=== PATIENT | female | born 1995 | race Caucasian/White ===

== ENCOUNTER 2018-08-11 10:06 | Day surgery (SDC) | payer OTHER ==
[2018-08-04 11:42] VITALS: BMI 32.0
[2018-08-11] MEDS ORDERED: MIDAZOLAM HCL 2 MG/2 ML SINGLE DOSE VIAL ONE (13:26)
[2018-08-11] MEDS ORDERED: PROPOFOL 20 ML ONE ×3 (13:26)
[2018-08-11] MEDS ORDERED: fentaNYL CITRATE 250 MCG/5 ML VIAL ONE ×2 (13:26→14:55)
[2018-08-11] MEDS ORDERED: ROCURONIUM BROMIDE 50 MG/5 ML VIAL ONE ×2 (13:26→14:54)
[2018-08-11] MEDS ORDERED: ceFAZolin SODIUM 1 GM VIAL ONE (13:51)
[2018-08-11] MEDS ORDERED: ONDANSETRON 4 MG/2 ML VIAL ONE (13:51)
[2018-08-11] MEDS ORDERED: LIDOCAINE HCL 2% JELLY (5 ML/TUBE) ONE (13:51)
[2018-08-11] MEDS ORDERED: KETOROLAC TROMETHAMINE 30 MG/1 ML VIAL ONE (13:51)
[2018-08-11] MEDS ORDERED: DEXAMETHASONE SOD PHOSPHATE 4 MG/1 ML VIAL ONE (13:51)
[2018-08-11] MEDS ORDERED: NEOSTIGMINE METHYLSULFATE 0.5 MG/ML - 10 ML MDV ONE (16:17)
--- NOTE | 2018-08-11 16:57 | SURG ---
Surgery Neonatal Pediatric Nurse Note Neonatal Pediatric Nurse: Monie Swartz PA-C Date of Service: 08/11/18 Diagnosis: bilateral symptomatic macromastia Procedure: Bilateral breast reduction I was present for the entirety of the operative procedure. For further detail, please refer to operative report. Visit type - Case Type Case Type: Scheduled - Emergency Emergency Visit: No - New patient This patient is new to me today: Yes Date on this admission: 08/11/18
[2018-08-11] MEDS ORDERED: oxyCODONE HCL 5 MG TABLET PO PRN ×4 (18:38→18:58)
[2018-08-11] MEDS ORDERED: PROMETHAZINE HCL 25 MG/1 ML VIAL IVPUSH PRN (18:38)
[2018-08-11] MEDS ORDERED: ONDANSETRON 4 MG/2 ML VIAL IVPUSH PRN (18:38)
[2018-08-11] MEDS ORDERED: ONDANSETRON 4 MG/2 ML VIAL IVPB PRN (18:58)
[2018-08-11] MEDS ORDERED: LACTATED RINGERS SOLUTION 1,000 ML IV SCH (19:00)
--- NOTE | 2018-08-11 19:01 | OP ---
Operative Note - Note: Operative Date: 08/11/18 Pre-Operative Diagnosis: bilateral symptomatic macromastia Operation: bilateral reduction mammoplasty Post-Operative Diagnosis: Same as Pre-op Surgeon: Prabhu Lopez Anesthesia: General Operative Report Dictated: Yes
[2018-08-11] MEDS ORDERED: oxyCODONE HCL 5 MG TABLET ONE (19:42)
[2018-08-11 20:29] VITALS: BP 108/70; PULSE 100; TEMP 98.8
--- NOTE | 2018-08-11 21:30 | OP ---
DATE OF OPERATION: 08/11/2018 TITLE OF PROCEDURE: Bilateral reduction mammoplasty. PREOPERATIVE DIAGNOSIS: Bilateral symptomatic macromastia. POSTOPERATIVE DIAGNOSIS: Bilateral symptomatic macromastia. ATTENDING SURGEON: Prabhu Lopez MD SPINDLE MAKER: JARED Simmons ANESTHESIA: General endotracheal. The patient is seen in the holding area and marked in a standing position an inverted-T, Velázquez-type pattern. Inferior pedicle mammoplasty is planned and marked. Patient is awake, aware of all incisions and resulting scars. Risks, benefits, and alternatives are thoroughly discussed, understand and agreed to proceed. Patient is then brought to the operating room, placed in supine position. It should be noted that nipples are sighted at 21 cm from the sternal notch bilaterally. Patient is placed in supine position. All pressure points are carefully padded in preparation for surgery. A Aguiar catheter is placed and removed at the end of the procedure. Sequential compression stockings and DEVORA hose were applied. A gram of Ancef was given preoperatively. At this point, a timeout is called. Patient, procedure, sites, and sides are verified. The patient had been prepped and draped in standard surgical fashion. The procedure commenced as follows. The markings are reassured. The nipples are traced with a 42-mm cookie cutter. A 10-cm-width inferior pedicle is patterned, centered over the midline of the breasts. The breasts are then placed under tourniquet for de-epithelialization. The pedicle is de-epithelialized with the exception of the nipple-areolar complex. At this point, the tourniquets are removed, and attention is first directed toward the left breast. Skin flaps are then elevated superiorly, medially, and laterally to the level of the chest wall. The pedicle is developed using PEAK Harmonic scalpel to the level of the chest wall to achieve the patient's desired size of C cup breasts. Hemostasis then meticulously achieved. The skin is tailor tacked with louise. With the patient in a seated, upright position, a C cup breast appears to be yielded. The resection weight on the left breast is 609 g. The attention is then directed toward the right breast where a mirror-image procedure is performed. This weight of the resected tissue on this right side is 707 g, just slightly larger breast to begin with. With the skin tailor tacked, the patient is brought to a seated, upright position. Symmetry of size and shape and position are all excellent. The skin is modified for closure. The closure is then performed over a size 10 flat MILA drain, brought out through the lateral extent of the incision, secured with a 2-0 silk drain suture. The lateral-most portions of the incisions are closed with a series of interrupted, superficial fascial system Rolly layer, 2-0 Vicryl suture. The inverted T-point is closed with a half-buried mattress 2-0 nylon suture. The vertical and horizontal limbs are then closed with a series of interrupted, buried, deep dermal 3-0 Monocryl suture, followed by a running subcuticular 3-0 Monocryl suture. The nipple-areola is inset with a series of interrupted, buried, deep dermal 3-0 Monocryl suture, followed by a running subcuticular 4-0 Monocryl suture. Closure is performed similarly on both sides. Nipples are pink and viable at the end of the procedure. Drains were placed to bulb suction. The patient is dressed with Xeroform and 4-x-4 gauze. A surgical bra is applied. The patient is transferred to Recovery without complication. Ariela [id number]
--- NOTE | 2018-08-13 13:10 | PATH ---
Surgical Pathology Report Patient Name: ANJEL LINDA Med. Rec. #: [id number] /Age/Gender: 1995 (Age: 23) / F Account: [id number] Location: [facility] Taken: 08/11/2018 Received: 08/11/2018 Reported: 08/13/2018 Physicians: Prabhu Lopez Specimen(s) Received A: LEFT BREAST SKIN AND TISSUE B: RIGHT BREAST SKIN AND TISSUE Clinical History Bilateral macromastia Final Diagnosis A. BREAST SKIN AND TISSUE, LEFT, EXCISION: BENIGN BREAST PARENCHYMA WITH STROMAL FIBROSIS. SKIN WITHOUT SIGNIFICANT PATHOLOGIC FINDINGS. B. BREAST SKIN AND TISSUE, RIGHT, EXCISION: BENIGN BREAST PARENCHYMA WITH STROMAL FIBROSIS AND MILD FOCAL PERIDUCTAL CHRONIC INFLAMMATION. SKIN WITH FOCAL MILD CHRONIC INFLAMMATION. Electronically Signed Katya Maynard M.D. Gross Description A. Received in formalin labeled "left breast skin and tissue" is a 655 g, 21.0 x 13.5 x 4.5 cm aggregate of multiple irregular, unoriented portions of fibroadipose tissue and del rosario, unremarkable skin. Sectioning reveals foci of white fibrous tissue. No lesions are identified. Seed Cleaner sections are submitted in 4 cassettes. B. Received in formalin labeled "right breast skin and tissue," is a 717 g, 25.0 x 15.0 x 5.5 cm aggregate of multiple irregular, unoriented portions of fibroadipose tissue and del rosario, unremarkable skin. Sectioning reveals foci of white fibrous tissue. No lesions are identified. Seed Cleaner sections are submitted in 4 cassettes. DL/08/12/2018 saudi08/12/2018
--- NOTE | 2018-08-14 05:43 | SURG ---
Surgery Gas Load Dispatcher Note Gas Load Dispatcher: Marian Sanabria PA-C Date of Service: 08/11/18 Diagnosis: bilateral symptomatic macromastia Procedure: bilateraly reduction mammoplasty I was present for the entirety of the operative procedure. For further detail, please refer to operative report. Visit type - Case Type Case Type: Scheduled - Emergency Emergency Visit: No - New patient This patient is new to me today: Yes Date on this admission: 08/11/18
== END 2018-08-11 20:29 | disposition home or self-care (01) ==
LOC: FASU 10:06
PROVIDERS: ATTEND Plastic Surgery
PROC: 0HBV0ZZ Excision of Bilateral Breast, Open Approach (ICD-10-PCS; principal; 2018-08-11 14:23)
DX: N62 Hypertrophy of breast (principal); N60.31 Fibrosclerosis of right breast; N60.32 Fibrosclerosis of left breast
CPT/HCPCS: 84703; 88305-TC; 94760